=== PATIENT | male | born 2000 | race Caucasian/White ===

== ENCOUNTER 2020-08-10 20:56 | Emergency (ER) | payer BC ==
[~2020-08-10] VITALS: Ht 180.3 cm; Wt 72.7 kg
[2020-08-10 21:01] VITALS: TEMP 97.5
[2020-08-11 01:13] VITALS: BP 95/56
[2020-08-11 02:10] VITALS: PULSE 71
== END 2020-08-11 02:11 | disposition home or self-care (01) ==
LOC: COL.ER 20:56
DX: S01.112A Laceration without foreign body of left eyelid and periocular area, initial encounter (principal); F10.129 Alcohol abuse with intoxication, unspecified; Y90.8 Blood alcohol level of 240 mg/100 ml or more; W22.8XXA Striking against or struck by other objects, initial encounter; Y92.009 Unspecified place in unspecified non-institutional (private) residence as the place of occurrence of the external cause

== ENCOUNTER → 2020-08-15 | Outpatient (CLI) | payer BC ==
[2020-08-15 19:44] VITALS: BP 124/74; PULSE 65; TEMP 98.5
== END ==
LOC: COL.ER 19:35
DX: Z48.02 Encounter for removal of sutures (principal)